=== PATIENT | male | born 1965 | race Caucasian/White ===

== ENCOUNTER 2023-07-26 14:37 | Emergency (ER) | payer SELFPAY ==
[~2023-07-26] VITALS: Ht 177.8 cm; Wt 79.9 kg
[~2023-07-26 14:37] MED LIST: PENICILLIN V P500 MG PO
[2023-07-26] MEDS ORDERED: MELOXICAM15 MG PO (17:03)
[2023-07-26 17:11] VITALS: BP 139/79
== END 2023-07-26 17:12 | disposition home or self-care (01) ==
LOC: ED 14:37
DX: M75.21 Bicipital tendinitis, right shoulder (principal)
CPT/HCPCS: 76882